=== PATIENT | male | born 1945 | race Caucasian/White ===

== ENCOUNTER 2019-05-11 07:18 | Outpatient (CLI) | payer MEDICARE, BC | END 2019-05-11 23:59 | disposition home or self-care (01) | LOC: NM 07:18 | PROVIDERS: ATTEND Internal Medicine Cardiovascular Disease | DX: I10 Essential (primary) hypertension (principal); R07.9 Chest pain, unspecified; E78.5 Hyperlipidemia, unspecified | CPT/HCPCS: 78452; A9502 ==